=== PATIENT | female | born 1955 | race Caucasian/White ===

== ENCOUNTER 2017-10-12 13:35 | Emergency (ER) | payer MEDICAID ==
[~2017-10-12] VITALS: Ht 160 cm; Wt 74.1 kg
[~2017-10-12 13:35] MED LIST: BALS750C7 PO; ESOM20CA PO; EST1T PO; FLUT1DIS4 INH; LEVA15HF4 INH; LORA-512 PO; METH4TAB81 PO; MONT10TA21 PO; TEMA15CA PO
[2017-10-12 14:31] LABS: BASOPHILS % (AUTO) 0.5 % (0-1); EOSINOPHILS # (AUTO) 0.9 X10'3 (0-0.9); EOSINOPHILS % (AUTO) 9.6 % (0-6); HEMATOCRIT 39.9 % (35.0-45.0); HEMOGLOBIN 13.3 g/dl (12.0-16.0); LYMPHOCYTES # (AUTO) 2.9 X10'3 (1.1-4.8); LYMPHOCYTES % (AUTO) 30.8 % (21-51); MEAN CORPUSCULAR HGB CONC 33.4 % (33.0-36.5); MEAN CORPUSCULAR VOLUME 89.6 FL (78-98); MEAN PLATELET VOLUME 8.4 FL (7.4-10.4); MONOCYTES # (AUTO) 0.5 X10'3 (0-0.9); MONOCYTES % (AUTO) 5.2 % (2-12); NEUTROPHILS % (AUTO) 53.9 % (42-75); PLATELET COUNT 354 X10'3 (140-440); RED BLOOD COUNT 4.45 X10'6 (4.20-5.60); RED CELL DISTRIBUTION WIDTH 14.1 % (11.5-14.5); WHITE BLOOD COUNT 9.3 X10'3 (4.5-11.0)
[2017-10-12 14:35] LABS: INR 0.9 INR; PROTHROMBIN TIME 9.5 SECONDS (9.0-12.0)
[2017-10-12 14:51] LABS: ALANINE AMINOTRANSFERASE 23 U/L (12-78); ALBUMIN 3.7 G/DL (3.4-5.0); ALBUMIN/GLOBULIN RATIO 0.9 (1.1-1.5); ALKALINE PHOSPHATASE 69 IU/L (46-116); ANION GAP 7 (8-16); ASPARTATE AMINO TRANSFERASE 12 U/L (10-37); BILIRUBIN,TOTAL 0.2 MG/DL (0.1-1.0); BLOOD UREA NITROGEN 14 MG/DL (7-18); BUN/CREATININE RATIO 15.7 (6.6-38.0); CALCIUM 9.1 MG/DL (8.5-10.1); CHLORIDE 105 MMOL/L (99-107); CREATININE 0.89 MG/DL (0.40-0.90); GLUCOSE 94 MG/DL (70-104); SODIUM 141 MMOL/L (135-145); TOTAL CARBON DIOXIDE 29.1 MMOL/L (24-32); TOTAL PROTEIN 7.7 G/DL (6.4-8.2); eGFR 65 ML/MIN
[2017-10-12 23:03] VITALS: BP 140/84
== END 2017-10-12 23:07 | disposition home or self-care (01) ==
LOC: ER 13:36
DX: M25.562 Pain in left knee (principal); J45.909 Unspecified asthma, uncomplicated; K21.9 Gastro-esophageal reflux disease without esophagitis; Z90.49 Acquired absence of other specified parts of digestive tract; Z90.710 Acquired absence of both cervix and uterus; Z98.890 Other specified postprocedural states; Z88.5 Allergy status to narcotic agent; Z88.2 Allergy status to sulfonamides; Z79.899 Other long term (current) drug therapy
CPT/HCPCS: 36415; 80053; 85025; 85610; 93005; 93971; 99285

== ENCOUNTER → 2018-01-04 | Outpatient (CLI) | payer MEDICAID | END | disposition home or self-care (01) | LOC: RAD 15:31 | PROVIDERS: ATTEND Orthopaedic Surgery | DX: I83.899 Varicose veins of unspecified lower extremity with other complications (principal); R60.0 Localized edema; J45.909 Unspecified asthma, uncomplicated | CPT/HCPCS: 93970 ==

== ENCOUNTER 2018-10-03 10:56 | Day surgery (SDC) | payer MEDICAID ==
[2018-09-25 13:11] LABS: BASOPHILS # (AUTO) 0.1 X10'3 (0-0.2); BASOPHILS % (AUTO) 0.8 % (0-1); EOSINOPHILS # (AUTO) 0.2 X10'3 (0-0.9); EOSINOPHILS % (AUTO) 2.1 % (0-6); LYMPHOCYTES # (AUTO) 2.7 X10'3 (1.1-4.8); LYMPHOCYTES % (AUTO) 35.3 % (21-51); MEAN CORPUSCULAR HEMOGLOBIN 30.1 PG (27.0-31.0); MEAN CORPUSCULAR HGB CONC 33.5 g/dL (33.0-36.5); MEAN CORPUSCULAR VOLUME 89.8 FL (78-98); MEAN PLATELET VOLUME 8.3 FL (7.4-10.4); MONOCYTES # (AUTO) 0.4 X10'3 (0-0.9); MONOCYTES % (AUTO) 5.4 % (2-12); NEUTROPHILS # (AUTO) 4.3 X10'3 (1.8-7.7); NEUTROPHILS % (AUTO) 56.4 % (42-75); PRE OP HEMATOCRIT 39.2 % (35.0-45.0); PRE OP HEMOGLOBIN 13.1 g/dL (12.0-16.0); PRE OP PLATELET COUNT 359 X10'3 (140-440); RED BLOOD COUNT 4.36 X10'6 (4.20-5.60); RED CELL DISTRIBUTION WIDTH 13.5 % (11.5-14.5)
[2018-09-25 13:38] LABS: ALBUMIN 3.4 G/DL (3.4-5.0); ALBUMIN/GLOBULIN RATIO 0.8 (1.1-1.5); ALKALINE PHOSPHATASE 70 IU/L (46-116); BLOOD UREA NITROGEN 14 MG/DL (7-18); BUN/CREATININE RATIO 17.9 (6.6-38.0); CALCIUM 8.7 MG/DL (8.5-10.1); CHLORIDE 104 MMOL/L (99-107); CREATININE 0.78 MG/DL (0.40-0.90); PRE OP ALT 24 U/L (30-65); PRE OP ANION GAP 8 (8-16); PRE OP AST 17 U/L (10-37); PRE OP BILIRUB, TOTAL 0.2 MG/DL (0.0-1.0); PRE OP GLUCOSE 100 MG/DL (70-104); PRE OP POTASSIUM 4.2 MMOL/L (3.4-5.1); PRE OP SODIUM 140 MMOL/L (135-145); TOTAL PROTEIN 7.6 G/DL (6.4-8.2); eGFR 75 ML/MIN
[2018-10-03] VITALS (13 sets, daily range): BP systolic 110–141; BP diastolic 63–82
[~2018-10-03] VITALS: Ht 160 cm; Wt 75.8 kg
[~2018-10-03 10:56] MED LIST changes: +ALBU18HF2 INH; +CETI10TA18 PO; -ESOM20CA PO; -LEVA15HF4 INH; +LEVO50TA PO; -LORA-512 PO; -METH4TAB81 PO; +OMEP20CA11 PO; +SIMV10TA6 PO; -TEMA15CA PO; +TRAZ-251 PO; +VANCOMYCIN INJ 1000 MG in NORMAL SALINE 250ml IV.SOLN IV ONE; +albuterol 2.5 MG/3 ML nebule NEB ONE; +ceFAZolin 2gm in dextrose, iso 100 ML IV ONE; +famotidine 20mg tablet PO ONE; +ringers solution, lacted 1,000 ML IV SCH
[2018-10-03] MEDS ORDERED: triamcinolone acetonide 40mg/ml inj ONE (11:01)
[2018-10-03] MEDS ORDERED: BUPIVAcaine/PF 2.5mg/ml (0.25%) 10ml vial ONE (11:01)
[2018-10-03] MEDS ORDERED: LIDOcaine 1% (10mg/ml) 2ml vial ONE (11:30)
[2018-10-03] MEDS ORDERED: sevoflurane 250ml liquid IH ONE (11:43)
[2018-10-03] MEDS ORDERED: LIDOcaine 2% (20mg/ml) 5ml vial ONE (12:02)
[2018-10-03] MEDS ORDERED: propofol inj 20 ML IV ONE (12:02)
[2018-10-03] MEDS ORDERED: ondansetron/PF 4mg/2ml inj ONE (12:02)
[2018-10-03] MEDS ORDERED: midazolam 2 mg/2 ml injection ONE (12:05)
[2018-10-03] MEDS ORDERED: fentaNYL/PF 50MCG/1 ML 2ML syringe ONE ×2 (12:05→12:14)
[2018-10-03] MEDS ORDERED: dexamethasone sod phosphate 4mg/ml inj. ONE (12:17)
[2018-10-03] MEDS ORDERED: ketorolac trometh. 30mg/ml inj. ONE (12:18)
[2018-10-03] MEDS ORDERED: ringers solution, lacted 1,000 ML IV SCH (12:34)
[2018-10-03] MEDS ORDERED: fentaNYL/PF 50MCG/1 ML 2ML syringe IV PRN ×2 (12:35)
[2018-10-03] MEDS ORDERED: labetalol 20mg/4ml (5mg/ml) syringe IV PRN (12:35)
[2018-10-03] MEDS ORDERED: hydrALAZINE 20mg/ml inj. IV PRN (12:35)
[2018-10-03] MEDS ORDERED: ondansetron/PF 4mg/2ml inj IV PRN (12:35)
[2018-10-03] MEDS ORDERED: meperidine/PF 25mg/ml syringe IV PRN ×2 (12:35)
--- NOTE | 2018-10-03 12:50 | NUR ---
PLEASE DISREGARD/OMIT LAST 2 LINES OF PREVIOUS ENTRY. PATIENT NOT YET D/C
--- NOTE | 2018-10-03 12:50 | NUR ---
Received from OR via BED, accompanied by Anesthesiologist DR BRADFORD and report given by Anesthesiolgist. PATIENT WAKING UP, NO S/S OF PAIN, V/S WNL, CSM INTACT, DRESSING TO LEFT KNEE CDI AND COLD POWDER PACK AND SCD ON LEGS. 20G PIV TO RUE. I HAVE REVIEWED D/C INSTRUCTIONS WITH PATIENT AND SHE HAS EVRBALIZED UNDERSTANDING. PATIENT D/C HOME WITH ALL BELONGINGS AND FAMILY GAVE TRANSPORT HOME.
--- NOTE | 2018-10-03 14:47 | NUR ---
AWAITING FOR PATIENT RIDE HOME
--- NOTE | 2018-10-03 16:00 | NUR ---
PATIENT A&OX4, DENIES PAIN, V/S WNL, CSM INTACT, DRESSING TO LEFT KNEE CDI W/ COLD POWDER PACK AND SCD OFF LEGS. 20G PIV TO SAVANNAH D/C. I HAVE REVIEWED D/C INSTRUCTIONS WITH PATIENT AND SHE HAS EVRBALIZED UNDERSTANDING. PATIENT D/C HOME WITH ALL BELONGINGS AND FAMILY GAVE TRANSPORT HOME.
== END 2018-10-03 16:00 | disposition home or self-care (01) ==
LOC: PAS 10:56
PROVIDERS: ATTEND Orthopaedic Surgery
DX: S83.242A Other tear of medial meniscus, current injury, left knee, initial encounter (principal); S83.282A Other tear of lateral meniscus, current injury, left knee, initial encounter; M22.8X1 Other disorders of patella, right knee; M22.42 Chondromalacia patellae, left knee; M17.12 Unilateral primary osteoarthritis, left knee; J45.909 Unspecified asthma, uncomplicated; E78.5 Hyperlipidemia, unspecified; K21.9 Gastro-esophageal reflux disease without esophagitis; X58.XXXA Exposure to other specified factors, initial encounter; Y93.89 Activity, other specified; Y92.89 Other specified places as the place of occurrence of the external cause; Y99.8 Other external cause status; Z79.82 Long term (current) use of aspirin; Z79.899 Other long term (current) drug therapy; Z88.6 Allergy status to analgesic agent; Z88.2 Allergy status to sulfonamides; Z90.49 Acquired absence of other specified parts of digestive tract; Z98.51 Tubal ligation status; Z90.710 Acquired absence of both cervix and uterus; Z98.890 Other specified postprocedural states; Z72.89 Other problems related to lifestyle; E03.9 Hypothyroidism, unspecified; E66.8 Other obesity; Z68.30 Body mass index [BMI] 30.0-30.9, adult
CPT/HCPCS: 29873; 29879; 29880; 36415; 80053; 84443; 85025; 93005; J0690; J1100; J1885; J2001; J2250; J2405; J2704; J3010; J3301; J3370; J3490; A6250; A6449; A7000; J7030; J7120

== ENCOUNTER 2019-03-04 06:32 | Day surgery (SDC) | payer MEDICAID ==
[2019-02-28 11:00] LABS: BASOPHILS # (AUTO) 0.1 X10'3 (0-0.2); BASOPHILS % (AUTO) 0.7 % (0-1); EOSINOPHILS # (AUTO) 0.3 X10'3 (0-0.9); EOSINOPHILS % (AUTO) 3.5 % (0-6); LYMPHOCYTES # (AUTO) 2.7 X10'3 (1.1-4.8); LYMPHOCYTES % (AUTO) 31.5 % (21-51); MEAN CORPUSCULAR HEMOGLOBIN 29.7 PG (27.0-31.0); MEAN CORPUSCULAR HGB CONC 33.3 g/dL (33.0-36.5); MEAN CORPUSCULAR VOLUME 89.2 FL (78-98); MEAN PLATELET VOLUME 7.7 FL (7.4-10.4); MONOCYTES # (AUTO) 0.5 X10'3 (0-0.9); MONOCYTES % (AUTO) 5.8 % (2-12); NEUTROPHILS % (AUTO) 58.5 % (42-75); PRE OP HEMATOCRIT 37.3 % (35.0-45.0); PRE OP HEMOGLOBIN 12.4 g/dL (12.0-16.0); PRE OP PLATELET COUNT 374 X10'3 (140-440); RED BLOOD COUNT 4.18 X10'6 (4.20-5.60); RED CELL DISTRIBUTION WIDTH 13.9 % (11.5-14.5)
[2019-02-28 11:11] LABS: ALANINE AMINOTRANSFERASE 23 U/L (12-78); ALBUMIN 3.3 G/DL (3.4-5.0); ALBUMIN/GLOBULIN RATIO 0.8 (1.1-1.5); ALKALINE PHOSPHATASE 71 IU/L (46-116); ANION GAP 12 (8-16); ASPARTATE AMINO TRANSFERASE 15 U/L (10-37); BILIRUBIN,TOTAL 0.3 MG/DL (0.1-1.0); BLOOD UREA NITROGEN 10 MG/DL (7-18); BUN/CREATININE RATIO 11.6 (6.6-38.0); CALCIUM 8.7 MG/DL (8.5-10.1); CHLORIDE 101 MMOL/L (99-107); CREATININE 0.86 MG/DL (0.40-0.90); GLUCOSE 112 MG/DL (70-104); POTASSIUM 4.4 MMOL/L (3.5-5.1); SODIUM 140 MMOL/L (135-145); TOTAL CARBON DIOXIDE 26.6 MMOL/L (24-32); TOTAL PROTEIN 7.4 G/DL (6.4-8.2); eGFR 67 ML/MIN
[~2019-03-04] VITALS: Ht 160 cm; Wt 77.9 kg
[2019-03-04] VITALS (10 sets, daily range): BP systolic 122–158; BP diastolic 44–99
[~2019-03-04 06:32] MED LIST changes: +ALBU8.5H8 INH; -CETI10TA18 PO; +FEXO180T94 PO; -FLUT1DIS4 INH; +FLUTICASONE INH; +SALMETEROL INH; -SIMV10TA6 PO; +SIMV10TA98 PO; -VANCOMYCIN INJ 1000 MG in NORMAL SALINE 250ml IV.SOLN IV ONE; -ceFAZolin 2gm in dextrose, iso 100 ML IV ONE; +cefazolin/dext.iso 2gm/50ml 50 ML IV ONE
[2019-03-04] MEDS ORDERED: LIDOcaine 1% 30ml preserv. free vial ONE (07:41)
[2019-03-04] MEDS ORDERED: ketorolac trometh. 30mg/ml inj. ONE ×2 (07:42→08:11)
[2019-03-04] MEDS ORDERED: ROPIVAcaine 0.5% (5mg/ml) 30ml vial ONE (07:42)
[2019-03-04] MEDS ORDERED: BUPIVAcaine/PF 2.5 mg/ml (0.25%) 30ml vial ONE (07:42)
[2019-03-04] MEDS ORDERED: sevoflurane 250ml liquid IH ONE (07:50)
[2019-03-04] MEDS ORDERED: LIDOcaine 2% (20mg/ml) 5ml vial ONE (08:01)
[2019-03-04] MEDS ORDERED: MIDAZolam 5mg/5ml vial ONE (08:01)
[2019-03-04] MEDS ORDERED: propofol inj 20 ML IV ONE (08:01)
[2019-03-04] MEDS ORDERED: fentaNYL/PF 50MCG/1 ML 2ML syringe ONE (08:01)
[2019-03-04] MEDS ORDERED: rocuronium 10mg/ml inj IV ONE (08:07)
[2019-03-04] MEDS ORDERED: dexamethasone sod phosphate 4mg/ml inj. ONE (08:11)
[2019-03-04] MEDS ORDERED: ondansetron/PF 4mg/2ml inj ONE (08:11)
[2019-03-04] MEDS ORDERED: ringers solution, lacted 1,000 ML IV SCH (08:36)
[2019-03-04] MEDS ORDERED: proCHLORperazine 10 MG/2 ml inj IV PRN (08:40)
[2019-03-04] MEDS ORDERED: meperidine/PF 25mg/ml syringe IV PRN ×2 (08:40)
[2019-03-04] MEDS ORDERED: ondansetron/PF 4mg/2ml inj IV PRN (08:40)
[2019-03-04] MEDS ORDERED: acetaminophen 1,000mg/100ml IV 100 ML IV ONE (09:04)
--- NOTE | 2019-03-04 09:30 | NUR ---
Received from OR via RADHA, accompanied by Anesthesiologist DR LEVIN and report given by Anesthesiolgist. PT PLACED ON O2 AND MONITOR, S/P ROBOT LAP ASSIST UMBILICAL HERNIA REPAIR, GENERAL ANESTH, PT HAS ORAL ARIWAY IN ROUSES TO NAME CALLING AND GENTLE SHAKING, THEN FALLS BACK TO SLEEP, PT HAS 3 LARGE ABD BANDAIDS, ABD SOFT, WILL CONT TO ASSESS.
[2019-03-04] MEDS: meperidine/PF 25mg/ml syringe IV PRN ×2 (10:27→10:42)
[2019-03-04] MEDS ORDERED: oxyCODONE/APAP 5-325mg tablet PO PRN ×3 (10:30)
--- NOTE | 2019-03-04 10:40 | NUR ---
PT DISCHARGED TO HOME WITH SISTER, VOIDING QS, DISCHARGE INSTRUCTIONS GIVEN AND READ TO PT QUESTIONS ENCOURAGED AND ANSWERED, PT VERBALIZED UNDERSTANDING, DC'D PIV INTRACATH INTACT, MANUAL PRESSURE AND COBAN APPLIED, PT TOLERATED WELL, PT LEFT VIA WHEELCHAIR, ACCOMPANIED BY [facility] TO PRIVATE VEHICLE, PT HAD HER PRESCRIPTION IN HAND.
== END 2019-03-04 10:40 | disposition home or self-care (01) ==
LOC: PAS 06:32
PROVIDERS: ATTEND Surgery
DX: K43.2 Incisional hernia without obstruction or gangrene (principal); E78.5 Hyperlipidemia, unspecified; E03.9 Hypothyroidism, unspecified; J45.909 Unspecified asthma, uncomplicated; K21.9 Gastro-esophageal reflux disease without esophagitis; Z88.2 Allergy status to sulfonamides; Z88.5 Allergy status to narcotic agent; Z79.899 Other long term (current) drug therapy; Z98.51 Tubal ligation status; Z90.710 Acquired absence of both cervix and uterus; Z90.49 Acquired absence of other specified parts of digestive tract; Z98.890 Other specified postprocedural states
CPT/HCPCS: 36415; 49654; 64488; 80053; 82948; 85025; C1781; J0131; J1100; J1885; J2001; J2175; J2250; J2405; J2704; J3010; J3490; S2900; A4215; A4618; J2795; J7120

== ENCOUNTER 2019-03-16 04:29 | Emergency (ER) | payer MEDICAID ==
[~2019-03-16] VITALS: Ht 160 cm; Wt 75.0 kg
[~2019-03-16 04:29] MED LIST changes: +SIMV10TA6 PO; -SIMV10TA98 PO; -albuterol 2.5 MG/3 ML nebule NEB ONE; -cefazolin/dext.iso 2gm/50ml 50 ML IV ONE; -famotidine 20mg tablet PO ONE; -ringers solution, lacted 1,000 ML IV SCH
[2019-03-16] MEDS ORDERED: DOXYCYCLINE 100MG CAPSULE PO STA (05:55)
[2019-03-16] MEDS ORDERED: DOXY100C43 PO (05:55)
[2019-03-16] MEDS ORDERED: CLOT15CR73 TP (05:58)
[2019-03-16 06:15] VITALS: BP 131/71
== END 2019-03-16 06:16 | disposition home or self-care (01) ==
LOC: ER 04:30
DX: N99.89 Other postprocedural complications and disorders of genitourinary system (principal); B37.89 Other sites of candidiasis; L30.4 Erythema intertrigo; L03.311 Cellulitis of abdominal wall; J45.909 Unspecified asthma, uncomplicated; K21.9 Gastro-esophageal reflux disease without esophagitis; E03.9 Hypothyroidism, unspecified; Z90.49 Acquired absence of other specified parts of digestive tract; Z90.710 Acquired absence of both cervix and uterus; Z88.2 Allergy status to sulfonamides; Z88.5 Allergy status to narcotic agent; Z79.899 Other long term (current) drug therapy
CPT/HCPCS: 99283

== ENCOUNTER 2024-11-13 08:43 | Observation (INO) | payer MEDICARE, MEDICAID ==
--- NOTE | 2024-11-05 16:06 | RADIOLOGY REPORT ---
CHEST RADIOGRAPH Indication: P pain Technique: Frontal and lateral view of the chest was obtained Comparison: None FINDINGS: Lines and Tubes: None Lungs: Clear Pleura: No effusion. No pneumothorax. Cardiomediastinal contours: Unremarkable Bones: Unremarkable IMPRESSION: No evidence of acute disease.
[2024-11-05 16:25] LABS: BASOPHILS # (AUTO) 0.1 X10'3 (0-0.2); BASOPHILS % (AUTO) 0.8 % (0-1); EOSINOPHILS # (AUTO) 0.4 X10'3 (0-0.9); EOSINOPHILS % (AUTO) 3.8 % (0-6); LYMPHOCYTES # (AUTO) 3.6 X10'3 (1.1-4.8); LYMPHOCYTES % (AUTO) 36.4 % (21-51); MEAN CORPUSCULAR HEMOGLOBIN 27.6 PG (27.0-31.0); MEAN CORPUSCULAR HGB CONC 32.3 g/dL (33.0-36.5); MEAN CORPUSCULAR VOLUME 85.4 FL (78-98); MEAN PLATELET VOLUME 8.1 FL (7.4-10.4); MONOCYTES # (AUTO) 0.6 X10'3 (0-0.9); MONOCYTES % (AUTO) 5.8 % (2-12); NEUTROPHILS # (AUTO) 5.2 X10'3 (1.8-7.7); NEUTROPHILS % (AUTO) 53.2 % (42-75); PRE OP HEMOGLOBIN 11.6 g/dL (12.0-16.0); PRE OP PLATELET COUNT 392 X10'3 (140-440); PRE OP WHITE BLOOD COUNT 9.8 10'3 (4.8-10.8); RED BLOOD COUNT 4.21 X10'6 (4.20-5.60); RED CELL DISTRIBUTION WIDTH 15.7 % (11.5-14.5)
[2024-11-05 16:30] LABS: BILIRUBIN,URINE NEGATIVE (Neg); CLARITY,URINE CLEAR (Clear); COLOR,URINE YELLOW (Yellow); GLUCOSE, URINE NEGATIVE (Neg); KETONES,URINE NEGATIVE (Neg); LEUKOCYTE ESTERASE ,URINE NEGATIVE (Neg); NITRITES, URINE NEGATIVE (Neg); OCCULT BLOOD,URINE NEGATIVE (Neg); PROTEIN,URINE NEGATIVE (Neg); UROBILINOGEN,URINE 0.2 E.U/dL (0.2-1.0)
[2024-11-05 16:33] LABS: UA COLLECTION TYPE CLN CATCH MIDSTREAM
[2024-11-05 16:34] LABS: ALBUMIN 3.7 G/DL (3.4-5.0); ALBUMIN/GLOBULIN RATIO 1.2 (1.1-1.5); ALKALINE PHOSPHATASE 77 IU/L (46-116); BLOOD UREA NITROGEN 12 MG/DL (7-18); BUN/CREATININE RATIO 14.8 (10.0-20.0); CALCIUM 8.9 MG/DL (8.5-10.1); CHLORIDE 107 MMOL/L (99-107); CREATININE 0.81 MG/DL (0.40-0.90); PRE OP ALT 20 U/L (30-65); PRE OP ANION GAP 8 (8-16); PRE OP AST 14 U/L (10-37); PRE OP BILIRUB, TOTAL 0.3 MG/DL (0.0-1.0); PRE OP GLUCOSE 102 MG/DL (70-104); PRE OP POTASSIUM 4.3 MMOL/L (3.4-5.1); PRE OP SODIUM 143 MMOL/L (135-145); TOTAL CARBON DIOXIDE 28.5 MMOL/L (24-32); TOTAL PROTEIN 6.9 G/DL (6.4-8.2); eGFR 71 ML/MIN
[~2024-11-13] VITALS: Ht 160 cm; Wt 75.5 kg
[2024-11-13] VITALS (27 sets, daily range): BP systolic 123–162; BP diastolic 43–93; PULSE 74–108; RESP 12–28; TEMP 97.1–98.6; O2SAT 92–100
[2024-11-13] MEDS: ceFOXitin sod/dextrose 2g/50ml 50 ML IV ONE (05:30)
[~2024-11-13 08:43] MED LIST changes: -ALBU18HF2 INH; +ALBU8.5H17 INH; -ALBU8.5H8 INH; -EST1T PO; -FEXO180T94 PO; -FLUTICASONE INH; +METF-436 PO; +MONT-48 PO; -MONT10TA21 PO; -OMEP20CA11 PO; +OMEP20CA15 PO; +SALM50DI2 INH; -SALMETEROL INH; +SIMV-343 PO; -SIMV10TA6 PO
[2024-11-13] MEDS: famotidine 20mg tablet PO ONE (09:19)
[2024-11-13] MEDS: ringers solution, lacted 1,000 ML IV SCH ×2 (09:20→09:35)
[2024-11-13] MEDS ORDERED: meperidine/PF 25mg/ml syringe IV PRN ×3 (09:35)
[2024-11-13] MEDS ORDERED: labetalol 20mg/4ml (5mg/ml) syringe IV PRN (09:35)
[2024-11-13] MEDS ORDERED: proCHLORperazine 10 MG/2 ml inj IV PRN (09:35)
[2024-11-13] MEDS ORDERED: ondansetron/PF 4mg/2ml inj IV PRN ×2 (09:35→15:50)
[2024-11-13] MEDS ORDERED: enalaprilat 1.25mg/ml 2ml vial IV PRN (09:35)
[2024-11-13] MEDS ORDERED: vasoPRESSIN 20 units/ml inj. ONE (10:44)
[2024-11-13] MEDS ORDERED: fentaNYL/PF 50MCG/1 ML 2ML syringe ONE ×2 (11:55→12:29)
[2024-11-13] MEDS ORDERED: midazolam 1 mg/ML 2ml injection ONE (11:56)
[2024-11-13] MEDS ORDERED: propofol inj 20 ML IV ONE (12:07)
[2024-11-13] MEDS ORDERED: LIDOcaine 1%/PF 5ML 10 MG/ML VIAL ONE (12:07)
[2024-11-13] MEDS ORDERED: sevoflurane 250ml liquid IH ONE (12:19)
[2024-11-13] MEDS ORDERED: acetaminophen 1,000mg/100ml IV 100 ML IV ONE (13:38)
[2024-11-13] MEDS ORDERED: ondansetron/PF 4mg/2ml inj ONE (13:42)
[2024-11-13] MEDS ORDERED: fentaNYL/PF 50MCG/1 ML 2ML syringe IV PRN (14:40)
[2024-11-13] MEDS: fentaNYL/PF 50MCG/1 ML 2ML syringe IV PRN (14:45)
[2024-11-13] MEDS ORDERED: acetaminophen w/codeine (30MG) #3 tablet PO PRN (15:50)
[2024-11-13] MEDS: normal saline 1000ml 1,000 ML IV SCH (17:34)
--- NOTE | 2024-11-13 18:07 | OPERATIVE REPORT ---
DATE OF SURGERY: 11/13/2024 DICTATING PHYSICIAN: Chema Pierre MD PREOPERATIVE DIAGNOSIS: Symptomatic rectocele. POSTOPERATIVE DIAGNOSIS: Symptomatic rectocele. SURGEON: Chema Pierre MD FLIGHT PURSER: Scott Regalado MD ANESTHESIOLOGIST: Dr. Torres. ANESTHESIA: General. PROCEDURE: Rectocele repair. FINDINGS: High rectocele of grade 3/3. No vaginal vault prolapse and no evidence of a cystocele. ESTIMATED BLOOD LOSS: 100 mL. COMPLICATIONS: None. INDICATIONS: The patient is a 68-year-old female with symptomatic pelvic organ prolapse. The patient declined the use of a pessary, opted for surgical management. Her exam in the office did not show any evidence of any significant cystocele; however, after extensive discussion due to a history of prior cystocele repair, we decided to reassess under anesthesia. Her exam revealed no evidence of a cystocele, hence this was not required. The patient hence agreed to either both or the single procedure. TECHNIQUE: The patient was taken to the OR where general anesthesia was found to be adequate. She was placed in a lithotomy position. She was prepped and draped in the usual sterile fashion. Exam under anesthesia was performed showing no evidence of a cystocele or vaginal vault prolapse as noted above with only evidence of a rectocele. The posterior aspect of the vagina was infiltrated with a dilute solution of vasopressin subcutaneously and the vaginal epithelium was then divided at the midline sharply. T-clamps were placed bilaterally for traction and the rectovaginal fascia was dissected off bluntly as well as sharply. It was noted that most of the rectocele was extremely high. Hence, the entire length of the vagina was essentially divided posteriorly. Plicating suture of 0 Ethibond was placed at the highest ____ to the severity of the rectocele in this area with an 0 Ethibond suture. Subsequently, 2-0 Vicryl plicating sutures were placed along the remaining length of the incision. The excess vaginal epithelium was trimmed away and the mucosa was then reapproximated with a running 2-0 Vicryl suture. Some oozing was noted and this was contained with FloSeal. Excellent hemostasis was obtained and the procedure was terminated. Sponge, lap, instrument, and needle counts reported correct. COMPLICATIONS: None. PATHOLOGY: None. DISPOSITION: The patient was taken to the recovery room in stable condition. Chema Pierre MD TID: [id number] RECEIPT: [id number] LAURENCE/MARY/BERNADETTE
[2024-11-13] MEDS: acetaminophen w/codeine (30MG) #3 tablet PO PRN (22:23)
[2024-11-13] MEDS ORDERED: pantoprazole 40mg Tablet.DR PO PRN (23:35)
[2024-11-13] MEDS: traZODone 50mg tablet PO SCH (23:58)
[2024-11-14] VITALS (9 sets, daily range): BP systolic 80–125; BP diastolic 41–59; PULSE 63–97; RESP 14–18; TEMP 97.3–98.5; O2SAT 92–96
[2024-11-14] MEDS: budesonide 0.5mg/2ml UD nebule IH SCH (08:35)
[2024-11-14] MEDS: levoTHYROXINE 25mcg tablet PO SCH (08:52)
[2024-11-14] MEDS ORDERED: atorvastatin 20mg tablet PO SCH (21:00)
[2024-11-14] MEDS ORDERED: traZODone 50mg tablet PO SCH (21:00)
--- NOTE | 2024-11-15 00:46 | DISCHARGE SUMMARY ---
DATE OF DISCHARGE: 11/14/2024 DICTATING PHYSICIAN: Chema Pierre MD ADMISSION DIAGNOSIS: The patient was admitted for surgical management of a symptomatic rectocele. DISCHARGE DIAGNOSIS: Status post posterior repair. HOSPITAL COURSE: On 11/13/2024, the patient was admitted for surgical management of symptomatic pelvic organ prolapse. A posterior repair was performed without complications. The patient has been doing well overnight. She is ambulating without difficulty, tolerating a regular diet, has voided, has adequate pain control, and is deemed ready for discharge home today. PHYSICAL EXAMINATION: GENERAL: The patient is alert and oriented, and in no acute distress. PELVIC: Deferred due to the patient is currently asymptomatic with appropriate discomfort due to her surgery. VITAL SIGNS: She is afebrile with a temperature of 97.3, blood pressure is 112/57, respiratory rate of 18, saturating 96%, pulse of 89. LABORATORY DATA: No labs were performed overnight secondary to minimal blood loss. ASSESSMENT: A 68-year-old female status post posterior repair, doing well on postop day #1 and deemed ready for discharge home. PLAN: Plan is to discharge the patient home now. She will follow up in my office in 2 weeks. Duration of disability is approximately 6 weeks. She has been instructed to observe 6 weeks of pelvic rest and not to lift objects over 10 pounds. DIET: Diet is to be regular. MEDICATIONS: The patient has been provided with pain meds as well as a stool softener, which she will use as needed, and she will resume her outpatient medications. DISPOSITION: The patient will be discharged home in improved condition. Chema Pierre MD TID: [id number] RECEIPT: [id number] LAURENCE/MARY
== END 2024-11-14 14:32 | disposition home or self-care (01) ==
LOC: PAS 08:43 → SUR 3N 15:52
PROVIDERS: ADMIT Obstetrics & Gynecology Obstetrics; ATTEND Obstetrics & Gynecology Obstetrics
DX: N81.6 Rectocele (principal); N81.9 Female genital prolapse, unspecified; Z79.899 Other long term (current) drug therapy; Z98.890 Other specified postprocedural states
CPT/HCPCS: 45560; 71046; 80053; 81003; 82948; 86885; 86900; 86901; 94640; 94760; A4615; A4618; A7000; G0378; J3490; J7120; 36415; 85025; 87081; A4314; C1758; J0131; J0694; J1100; J2250; J2405; J2704; J3010; J7030

== ENCOUNTER 2025-04-01 11:56 | Emergency (ER) | payer MEDICARE, MEDICAID ==
[~2025-04-01] VITALS: Ht 165.1 cm; Wt 79.0 kg
[2025-04-01 12:15] VITALS: TEMP 98.3
--- NOTE | 2025-04-01 12:27 | Physician Documentation ---
History of Present Illness ~ General Chief Complaint: Nausea Stated Complaint: N/V Time Seen by MD: 12:16 Primary Medical Doctor: EVELYN ALLEN History of Present Illness Initial Comments 69-year-old female presents to the ED with a complaint of acute onset dizziness. She does have a history of vertigo. She denies any shortness of breath chest pain however she reports severe nausea and vomiting for the last day.. Says she has not unbalanced gait as well. Denies any vision changes denies any headaches denies any focal deficits Medication Reconciliation Allergies: Coded Allergies: Sulfa (Sulfonamide Antibiotics) (Verified Allergy, Severe, DIFFICULTY BREATHING/HIVES, SWELLING, 04/01/25) tramadol (Verified Allergy, Unknown, SWELLING, HIVES, 04/01/25) morphine (Verified Adverse Reaction, Unknown, CONFUSION, SCREAMING/MENTAL ISSUES, 04/01/25) Scheduled Balsalazide Disodium (Colazal), 1 CAP PO DAILY, (Reported) Levothyroxine Sodium (Synthroid), 1 TAB PO DAILY, (Reported) Metformin Hcl (Metformin Hcl), 1 TAB PO Q12H, (Reported) Montelukast Sodium (Singulair), 10 MG PO HS, (Reported) Salmeterol Xinafoate* (Serevent Diskus*), 1 PUFFS INH BID, (Reported) Simvastatin (Zocor), 1 TAB PO HS, (Reported) Trazodone HCl (Trazodone HCl), 2 TAB PO HS, (Reported) Scheduled PRN Albuterol Sulfate (Proair Hfa), 2 PUFFS INH Q4HPRN PRN for SOB or wheezing, (Reported) Omeprazole (Omeprazole), 1 CAP PO BID PRN for HEART BURN, (Reported) Past Medical History Past Medical History: *CARDIOVASCULAR*, Asthma, GERD, Hernia, *CANCER* Past Surgical History: cholecystectomy, hysterectomy, other Other Past Surgical History: Hernia sx Alcohol Use: None Drug Use: none Lives In: Home Review of Systems All Other Systems at this time: Reviewed and Negative ROS As stated above in the HPI, otherwise all systems are reviewed and negative. Physical Exam Physical Exam Vital Signs: Heart Rate: 98, Respiratory Rate: 15, BP: 140/73, Pulse Oximetry: 97, Weight: 79.000 Physical Exam General: Alert, no apparent distress. HEENT: PERRL, EOMI, no injection, moist mucous membranes. no nystagmus Respiratory: Lungs clear, no respiratory distress. Chest: No accessory muscle use. Cardiovascular: Regular rate and rhythm, no murmurs. Gastrointestinal: Soft, nontender, nondistended. Bowels sounds present. Extremities: Normal range of motion, no deformity. Neurologic: Oriented x4. Psychiatric: Normal mood and affect. Skin: Normal color, warm and dry. No edema, no ecchymosis. Progress Results/Orders Results/Orders Orders - LYNDSEY AYALA NEW PRODUCT TRAINER Acetaminophen 1,000mg/100ml Iv (Ofirmev (04/01/25 20:00) Completed Orders - LYNDSEY AYALA NEW PRODUCT TRAINER Normal Saline 1000ml (0.9% Sodium Chlori (04/01/25 15:50) Ondansetron Inj. (Zofran 4mg/2ml Vial) (04/01/25 18:15) Medications Received in ER Medications (Trade) Dose Ordered Sig/Connie Route PRN Reason Start Time Stop Time Status Last Admin Dose Admin (Antivert tablet) 12.5 mg ONCE ONCE PO 04/01/25 12:20 04/01/25 12:22 DC 04/01/25 13:10 12.5 MG (0.9% sodium chloride (NS) 1000ml IV soln) 1,000 ml ONCE ONCE IVB 04/01/25 12:20 04/01/25 12:22 DC 04/01/25 13:10 1,000 ML (0.9% sodium chloride (NS) 1000ml IV soln) 1,000 ml ONCE ONCE IVB 04/01/25 15:50 04/01/25 15:55 DC 04/01/25 16:21 1,000 ML (Zofran 4mg/2ml vial) 4 mg ONCE ONCE IV 04/01/25 18:15 04/01/25 18:16 DC 04/01/25 18:26 4 MG Vital Signs 04/01/25 04/01/25 04/01/25 04/01/25 12:06 12:15 13:11 14:00 Temp 98.3 Pulse 98 100 108 103 Resp 15 15 19 16 B/P (MAP) 140/73 155/79 (104) 153/85 (107) 156/82 (106) Pulse Ox 97 98 97 97 O2 Flow Rate 2.0 0 2.0 04/01/25 04/01/25 04/01/25 04/01/25 15:00 16:00 16:22 18:26 Pulse 102 99 106 Resp 12 16 12 B/P (MAP) 158/83 (108) 151/79 (103) 137/82 (100) Pulse Ox 98 98 97 99 O2 Delivery Nasal Cannula* O2 Flow Rate 2.0 1.0 2 0 FiO2 28 Laboratory Tests Test 04/01/25 12:24 04/01/25 14:30 04/01/25 15:14 White Blood Count 12.9 H Red Blood Count 4.79 Hemoglobin 13.5 Hematocrit 41.5 Mean Corpuscular Volume 86.7 Mean Corpuscular Hemoglobin 28.3 Mean Corpuscular Hemoglobin Concent 32.6 L Red Cell Distribution Width 14.4 Platelet Count 381 Mean Platelet Volume 8.1 Neutrophils (%) (Auto) 89.4 H Lymphocytes (%) (Auto) 8.3 L Monocytes (%) (Auto) 1.7 L Eosinophils (%) (Auto) 0.1 Basophils (%) (Auto) 0.5 Neutrophils # (Auto) 11.5 H Lymphocytes # (Auto) 1.1 Monocytes # (Auto) 0.2 Eosinophils # (Auto) 0.0 Basophils # (Auto) 0.1 CBC Comment Sodium Level 139 Potassium Level 4.1 Chloride Level 104 Carbon Dioxide Level 29.6 Anion Gap 5 L Blood Urea Nitrogen 15 Creatinine 0.75 Estimated GFR/1.73 m2 77 BUN/Creatinine Ratio 20.0 Glucose Level 135 H Calcium Level 9.3 Total Bilirubin 0.3 Aspartate Amino Transf (AST/SGOT) 20 Alanine Aminotransferase (ALT/SGPT) 19 Alkaline Phosphatase 82 Troponin I High Sensitivity 6 Pro-B-Type Natriuretic Peptide 113 Total Protein 7.8 Albumin 3.8 Globulin 4.0 Albumin/Globulin Ratio 1.0 L Lipase 61 Chemistry Comments Urine Specimen Description Cln catch midstream Urine Color Yellow Urine Clarity Clear Urine pH 8.5 Urine Specific [place] 1.015 Urine Protein Negative Urine Glucose (UA) Negative Urine Ketones Trace H Urine Occult Blood Negative Urine Nitrite Negative Urine Bilirubin Negative Urine Urobilinogen 0.2 Urine Leukocyte Esterase Negative Urine Culture Indicated Not ind Volume Urine Centrifuged 10 ml Urine Comment SARS-CoV-2 Antigen (Rapid) Negative Medical Decision Making Additional information obtaine: other Findings Patient presented with acute onset vertigo, with symptoms consistent with benign paroxysmal positional vertigo (BPPV). All laboratory diagnostics, including CBC, BMP, and other relevant studies, were negative. CT imaging of the head was performed and showed no acute intracranial pathology or other concerning findings. No evidence of central nervous system involvement or other secondary causes of vertigo was identified. During the ED stay, the patient received intravenous fluids, Compazine, Zofran, and meclizine, with minimal symptomatic improvement. These medications are commonly used for symptomatic relief but are not considered first-line therapy for BPPV, as guideline-based management prioritizes canalith repositioning maneuvers (e.g., Demetrius or Semont maneuvers) for definitive treatment. Vestibular suppressants may be used for severe nausea but do not address the underlying pa thophysiology of BPPV and may impede central compensation. Given the absence of concerning findings on imaging and laboratory studies, and the patient's stable clinical status, discharge is appropriate. The diagnosis is vertigo, most likely BPPV, based on clinical presentation and exclusion of other etiologies. The patient is advised to follow up with their primary care provider for further evaluation and consideration of canalith repositioning maneuvers if symptoms persist or recur, as these have demonstrated high efficacy and safety. Patient education regarding the benign nature of BPPV, expected course, and recurrence risk (15-18% annually) was provided. No acute interventions or inpatient admission are indicated at this time. Return precautions for worsening symptoms, new neurological deficits, or inability to tolerate oral intake were discussed. Differential Diagnosis Scribed for Monique Rosen Farm Laborer by Monique Suh NP . 04/01/25 13:57 Departure Disposition: 01 HOME / SELF CARE / HOMELESS Impression: Primary Impression: Vertigo Additional Impression: Benign paroxysmal vertigo Discharge Instructions: Nausea and Vomiting, Adult, [id number], Vertigo, [id number] Referrals: NO PRIMARY CARE PROVIDER (PCP) Prescriptions Meclizine Hcl (MECLIZINE HCL) 12.5 Mg Tablet 1 TAB PO Q8H for dizziness for 10 Days, #30 TAB 0 Refills Prov: LYNDSEY AYALA 04/01/25 Education Educated: Patient Educated regarding: diagnosis, treatment, need for follow up Signature Scribe Signature: A Attestation: Scribed for Lyndsey Ayala by CHAN Hyde . 04/01/25 20:05 MONIQUE ROSEN NP Apr 01, 2025 12:27 LYNDSEY AYALA Apr 01, 2025 20:03
[2025-04-01 12:31] LABS: MEAN PLATELET VOLUME 8.1 FL (7.4-10.4); RED CELL DISTRIBUTION WIDTH 14.4 % (11.5-14.5)
--- NOTE | 2025-04-01 12:43 | RADIOLOGY REPORT ---
EXAM: DI CHEST,SINGLE VIEW HISTORY: CP TECHNIQUE: 1 view of the chest COMPARISON: DI CHEST,TWO VIEWS on DOS: 11/05/24 FINDINGS/IMPRESSION: LUNGS: No pleural effusion, consolidation, or pneumothorax. MEDIASTINUM: Unremarkable. BONES: No acute osseous abnormality. OTHER: None.
[2025-04-01 12:50] LABS: CREATININE 0.75 MG/DL (0.40-0.90); TOTAL CARBON DIOXIDE 29.6 MMOL/L (24-32); eCRCL 66 ML/MIN; eGFR 77 ML/MIN
[2025-04-01 12:56] LABS: PRO BRAIN NATRIURETIC PEPTIDE 113 PG/ML (0-125)
[2025-04-01] MEDS: normal saline 1000ML IV soln IVB ONE ×2 (13:10→16:21)
--- NOTE | 2025-04-01 13:19 | ELECTROCARDIOGRAPH REPORT ---
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 Bud Pierre Measurements Intervals [place] Rate: 96 P: 56 CT: 206 QRS: 35 QRSD: 86 T: 51 QT: 345 QTc: 436 Interpretive Statements Sinus rhythm Ventricular premature complex Baseline wander in lead(s) V2 Electronically Signed On 04-02-2025 18:48:[address] Bud Pierre Please click the below link to view image of tracing.
--- NOTE | 2025-04-01 14:10 | RADIOLOGY REPORT ---
EXAM: CT CT HEAD INDICATION: dizzy TECHNIQUE: CT of the head without intravenous contrast. Radiation Dose Information: CT Dose: CTDI volume is 25 mGy. Dose-length product is 250 mGy*cm The dose indicators for CT are the volume Computed Tomography (CT) Dose Index (CTDIvol) and the Dose Length Product (DLP), and are measured in units of mGy and mGy-cm, respectively. These indicators are not patient dose, but values generated from the CT scanner acquisition factors. The report includes radiation exposure data for exposures received during this examination. COMPARISON: None FINDINGS: There is no evidence of acute intracranial hemorrhage, extra-axial collection, mass effect, midline shift, herniation or hydrocephalus. The ventricles, sulci and cisterns are age appropriate. The hassan-white differentiation is intact. Patchy periventricular and subcortical white matter hypoattenuation is nonspecific but may be related to small vessel ischemic disease. The visualized paranasal sinuses and mastoid air cells are clear. The surrounding soft tissues and osseous structures are unremarkable. IMPRESSION: No acute intracranial abnormality.
[2025-04-01 14:34] LABS: LEUKOCYTE ESTERASE ,URINE NEGATIVE (Neg); NITRITES, URINE NEGATIVE (Neg); OCCULT BLOOD,URINE NEGATIVE (Neg)
[2025-04-01 14:36] LABS: UA COLLECTION TYPE CLN CATCH MIDSTREAM
[2025-04-01] MEDS: ondansetron/PF 4mg/2ml inj IV ONE (18:26)
[2025-04-01] MEDS: acetaminophen 1,000mg/100ml IV 100 ML IV SCH (19:57)
[2025-04-01] MEDS ORDERED: MECL-231 PO (20:05)
[2025-04-01 21:25] VITALS: BP 152/95; PULSE 97; RESP 16; O2SAT 98
== END 2025-04-01 21:32 | disposition home or self-care (01) ==
LOC: ER 11:56
DX: R42 Dizziness and giddiness (principal); R11.2 Nausea with vomiting, unspecified; J45.909 Unspecified asthma, uncomplicated; K21.9 Gastro-esophageal reflux disease without esophagitis; Z88.2 Allergy status to sulfonamides; Z88.5 Allergy status to narcotic agent; Z90.710 Acquired absence of both cervix and uterus; Z90.49 Acquired absence of other specified parts of digestive tract; Z79.899 Other long term (current) drug therapy; Z20.822 Contact with and (suspected) exposure to COVID-19
CPT/HCPCS: 36415; 70450; 71045; 80053; 81003; 83690; 83880; 84484; 85025; 87811; 93005; 96361; 96374; 96375; 99285; J0780; J2405; J7030; J8597